=== PATIENT | female | born 1925 | race Caucasian/White ===

== ENCOUNTER 2016-12-20 22:23 | Observation (INO) | payer OTHER ==
--- NOTE | ~2016-12-20 | DS ---
Discharge Summary [facility] [address] [place]. [address] NAME: DEMETRIA JIMENEZ : [birth year] STATUS : DIS Ac PAT#: [id number] AGE: 89 ADM/REG DATE : 12/20/16 MR#: [id number] REPORT SERV DATE: 12/24/16 DICTATED BY: JR. CHOI WILLIAM JOHN DATE: 12/23/16 REPORT STATUS : Draft TRANSCRIBED BY: SHAHEED DATE: 12/23/16 ADMISSION DATE: 12/20/2016 DISCHARGE DATE: 12/23/2016 DISCHARGE DIAGNOSES: Include: 1. Syncope. 2. Acute kidney injury. 3. New right bundle branch block. 4. Uncontrolled hypertension. 5. Mental status change, which has resolved. OPERATIONS, PROCEDURES, AND TREATMENTS: Include: 1. Carotid flow study done 12/21/2016, which showed no significant carotid stenosis. Vertebral arteries were antegrade. 2. Echocardiogram done 12/21/2016, which showed normal left ventricular size and function with ejection fraction of 55-60%. Normal right ventricular size and function, possible left to right flow, atrial septal defect or stretch patent foramen ovale. 3. MRI of the brain done 12/21/2016, which showed moderate generalized atrophy without evidence of infarction. There was tortuosity and redundancy of the vertebral basilar artery. 4. Myocardial perfusion scan which showed no ischemia. DISCHARGE MEDICATIONS: Include: 1. Norvasc 10 mg daily. 2. Aspirin 81 daily. 3. Lipitor 40 daily. 4. Stool softener daily. 5. Tylenol as needed. HOSPITAL COURSE: The patient was an 89-year-old female who was walking out of beauty shop and felt dizzy, fell on her face. She was somewhat confused when she awakened and had a quite elevated blood pressure. The patient went to [facility]. She was given clonidine, nitroglycerin paste, and was subsequently transferred to [facility]. The patient was admitted to the Clinical Decision Unit. She was maintained on telemetry. She had an echocardiogram as above. She was also found to have a right bundle branch block, possibly new. Given the abnormal findings, the echocardiogram the bundle branch block and cardiogenic like symptoms, Cardiology was consulted. Dr. Can saw the patient and agreed the patient was a good candidate for an event monitor. She will be fitted with an event monitor tomorrow 12/24/2016 and will follow up with Cardiology in that regard. Regarding the patient's acute kidney injury, this resolved with IV fluids. Regarding the patient's hypertension, she was started on Norvasc with fair control. Regarding the mental status changes, resolved. This discharge took approximately 50 minutes for patient encounter, coordination care, and documentation. Discharge Summary [address] [address] NAME: DEMETRIA JIMENEZ : [birth year] STATUS : DIS Ac PAT#: [id number] AGE: 89 ADM/REG DATE : 12/20/16 MR#: [id number] REPORT SERV DATE: 12/24/16 DICTATED BY: JR. CHOI WILLIAM JOHN DATE: 12/23/16 REPORT STATUS : Draft TRANSCRIBED BY: SHAHEED DATE: 12/23/16 DISCHARGE DIET: Regular. ACTIVITY: As tolerated. WJF/SHAHEED Tre Choi Jr, MD / [id number] CC: MD Anca Chicas M.D.
--- NOTE | ~2016-12-20 | CN ---
Consultation Report [facility] [address] [place]. [address] NAME: DEMETRIA JIMENEZ : [birth year] STATUS : DIS Ac PAT#: [id number] AGE: 89 ADM/REG DATE : 12/20/16 MR#: [id number] REPORT SERV DATE: 12/23/16 DICTATED BY: RICHARD CAN DATE: 12/23/16 REPORT STATUS : Draft TRANSCRIBED BY: MODL DATE: 12/23/16 CARDIOLOGY CONSULTATION DATE OF CONSULTATION: 12/23/2016 REASON FOR CONSULTATION: Syncope and abnormal EKG. HISTORY OF PRESENT ILLNESS: Ms Jimenez is an 89-year-old female, we have been asked to see by the Hospitalist Service for evaluation and management of syncope with abnormal EKG. She has no significant cardiovascular history, but does have prior admissions to [facility] documented an abnormal EKG with a right bundle-branch block and first-degree AV block. She also has an echocardiogram from 09/2016 documenting normal LV systolic function with an interatrial defect, likely an ASD. She was in her usual state of health until three days ago when she was leaving the [employer] and became briefly dizzy before having a fall and striking her right sabianism. She was taken to her local ER where she was noted to have periorbital ecchymoses, but no significant intracranial trauma on the imaging. Her initial workup was unremarkable other than mild creatinine elevation and she was transferred here for further evaluation. Her workup here has been notable for an EKG demonstrating a right bundle-branch block, and a limited echo demonstrating no significant change from prior. She also had a stress test documenting no ischemia and a carotid duplex that showed no obstructive disease. At the time my evaluation, she feels well and states that she has not had any dizziness or lightheadedness since admission. Her recollection of her event is mostly clear, but she does not recall the actual active falling. She does recall feeling slightly dizzy. She comments that she normally ambulates with the assistance of a cane and/or walker and did not have these devices with her. She has had a previous episode of syncope versus fall, but without as much trauma. She denies any preceding chest pain or any palpitations. PAST MEDICAL HISTORY: 1. Hypertension. 2. Right bundle-branch block. MEDICATIONS: The patient states that she only takes a primary prevention aspirin. ALLERGIES: TO PENICILLIN, UNKNOWN REACTION. FAMILY HISTORY: Noncontributory. SOCIAL HISTORY: The patient is a resident at a shelter facility named [facility]. She is independent in all of her activities of daily living. She is a since the early s and has two children who live nearby. Her son is at bedside. She formally worked in [address] 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 No alcohol, tobacco, or illicits. REVIEW OF SYSTEMS: Per HPI. Otherwise, negative. PHYSICAL EXAMINATION: VITAL SIGNS: Heart rate approximately 60, blood pressure 170/70, respiratory rate 16. GENERAL: Well developed, female, in no apparent distress. HEENT: Remarkable for ecchymosis along the right orbit. No facial asymmetry. CARDIOVASCULAR: Regular S1, S2. No murmurs were present. Split S2 is noted. PULMONARY: Clear to auscultation bilaterally. No wheezes, no rales. ABDOMEN: Soft, nondistended, nontender. EXTREMITIES: Warm without edema. LABORATORY DATA: Labs reviewed and notable for creatinine of 1.06, GFR approximately 55. Sodium and potassium within normal limits. Hemoglobin 11.4, troponin less than 0.04 x2. TSH 2.1. EKG reviewed demonstrates sinus rhythm with first-degree AV block and right bundle-branch block. Compared to prior EKGs, the right bundle branch block is not new. Telemetry demonstrates sinus rhythm with periods of sinus bradycardia and PACs, but no prolonged pauses. IMPRESSIONS/RECOMMENDATIONS: 1. Syncope versus mechanical fall. 2. Abnormal electrocardiogram, right bundle-branch block, first-degree atrioventricular block. 3. Abnormal echocardiogram suggestive of atrioseptal defect, but without evidence of right ventricular enlargement. 4. Although there are features that suggest that the patient did have a true syncopal episode, she normally ambulates with mechanical assist devices and did not have these. It is very possible, but this was simply a mechanical fall despite her limited recollection of the events. Thus far, on telemetry, there has not been any obvious source of syncope from electrocardiographic standpoint. Her right bundle-branch block is old and there have been no prolonged pauses in this 89 year old in whom advanced conduction system disease and/or sick sinus syndrome is a possibility, I would favor ambulatory monitoring and specifically an event monitor as the next step. We will attempt to arrange this in the next 24 hours, but at this time based on the lack of any significant dysrhythmia, discharge would be reasonable. Regarding atrial septal defect, there is no indication for additional therapy at this time. No significant right-sided remodeling is noted. I will see her in the outpatient setting. Thank you for the consultation. Consultation Report [address] [place]. [address] NAME: DEMETRIA JIMENEZ : [birth year] STATUS : DIS Ac PAT#: [id number] AGE: 89 ADM/REG DATE : 12/20/16 MR#: [id number] REPORT SERV DATE: 12/23/16 DICTATED BY: RICHARD CAN DATE: 12/23/16 REPORT STATUS : Draft TRANSCRIBED BY: SHAHEED DATE: 12/23/16 LARA/SHAHEED Richard Can MD / [id number] CC: MD Anca Chicas M.D.
--- NOTE | ~2016-12-20 | HP ---
History And Physical [facility] [address] [facility] [place]. [address] NAME: DEMETRIA JIMENEZ : [birth year] STATUS : ADM Ac PAT#: [id number] AGE: 89 ADM/REG DATE : 12/20/16 MR#: [id number] REPORT SERV DATE: 12/21/16 DICTATED BY: DEVON SEE DATE: 12/21/16 REPORT STATUS : Draft TRANSCRIBED BY: MODL DATE: 12/21/16 DATE OF ADMISSION: 12/20/2016 CHIEF COMPLAINT: This is the patient we accepted in transfer from [facility] after I spoke to physician's market research assistant there, [place] Yakelin Carpio. HISTORY OF PRESENT ILLNESS: Briefly, the patient was walking out of a beauty shop after doing her hair when she suddenly felt dizzy and fell to the floor. She says she was on the sidewalk, almost reached the car of her sister, but could not make it. In going down, she also hit her head over the right eyebrow. When she woke up, she was a little confused and EMS was called and the patient was brought to the Emergency Room at [facility]. According to Ms. Carpio that I spoke to, when she arrived there, her blood pressure was 220/90. She was immediately given some clonidine and nitro paste and subsequently came down to 176/78. Initial workup there revealed a creatinine of 1.22 and elevated BNP of 845. Chest x-ray was unremarkable. Troponin was negative. CBC was unremarkable, so was her CMP. Her CK was normal. The patient has no past medical history and she takes no medicine other than aspirin and Tylenol on an as needed basis. She wanted to be transferred to [facility] for further evaluation. At the time of my evaluation when she got here, she was very pleasant, was in no acute distress. She denied any chest pain, palpitations, or orthopnea. She had no cough, hemoptysis, night sweats, or weight loss. She denied any fevers, chills, nausea, vomiting, diarrhea. She denied any hematemesis, hematochezia, or hematuria. No other history of recent travel or exposures. PAST MEDICAL HISTORY: Significant for history of possibly hypertension that she was on lisinopril and she discontinued this many years ago by herself. SOCIAL HISTORY: She has never smoked. Does not drink or use recreational drugs. She used to work in the insurance industry from an office. FAMILY HISTORY: Noncontributory. MEDICATIONS: At home, none. REVIEW OF SYSTEMS: As in history of present illness. All other systems were reviewed in detail and quite unremarkable. PHYSICAL EXAMINATION: GENERAL: This is a pleasant 89-year-old, not in any acute distress. HEENT: Her head has a small contusion over her right eyebrow, otherwise unremarkable. She was alert, awake, oriented to time, place, and person. Pupils are equal, reacting to light and accommodating. External ocular muscles were intact. Membranes were moist and pink. Sclerae are nonicteric. NECK: Supple with no jugular venous distention, lymphadenopathy, or thyromegaly. History And Physical [address] [address] NAME: DEMETRIA JIMENEZ : [birth year] STATUS : ADM Ac PAT#: [id number] AGE: 89 ADM/REG DATE : 12/20/16 MR#: [id number] REPORT SERV DATE: 12/21/16 DICTATED BY: DEVON SEE DATE: 12/21/16 REPORT STATUS : Draft TRANSCRIBED BY: SHAHEED DATE: 12/21/16 LUNGS: Auscultation of her lungs revealed good air entry bilaterally with no wheezes, rubs, or crackles. HEART: Heart sounds were regular with no murmurs, rubs, or gallops. ABDOMEN: Soft, nontender. Bowel sounds are present. EXTREMITIES: Showed no cyanosis, clubbing, or edema. NEUROLOGIC: Grossly intact. No focal sensory or motor deficits. Higher functions appeared intact. She was able to move all four extremities. VITAL SIGNS: Her vital signs when she arrived here showed she was afebrile with a temperature of 98.6, pulse 56, respirations 22 a minute, blood pressure was 140/63, oxygen saturations were 99% on 2 L via nasal cannula. LABORATORY DATA: Laboratory data and other material which accompanied the patient from [facility] was reviewed by me today. Of mention, her EKG done there showed a new right bundle-branch block. Otherwise, without any acute ST-T changes. IMPRESSION: 1. Syncope and collapse. 2. Acute kidney injury. 3. New right bundle-branch block. 4. Uncontrolled hypertension. 5. Altered mental status, resolved. PLAN: We will admit Ms. Jimenez to the Hospitalist Service with telemetry for a 24-hour observation period. We will control blood pressures with clonidine and continue her nitro paste that she is on. We will also give her a dose of Bumex intravenously as well. We will get an echocardiogram in the morning. We have no prior data from any physician that had seen as she had no past medical history. She does have some slightly elevated creatinine here. We will monitor her labs in the morning after above interventions. We will also place her on unfractionated heparin for DVT prophylaxis while she is here. I have discussed the above plans with the patient. Her questions were answered. She is agreeable to the above recommendations. Hospitalist Service will be following her during her stay here. /SHAHEED Devon See M.D. / [id number] CC: MD Anca Chicas M.D.
[~2016-12-20 22:23] MED LIST: MOBIC15 MG PO; PRIN2.5 PO; T PO
[2016-12-20] MEDS ORDERED: ASAB PO (23:57)
[2016-12-21 07:46] LABS: BASOPHILS 0.1 %; BASOPHILS ABSOLUTE 0.01 10/3/uL (0.0-0.16); EOSINOPHILS 2.8 %; EOSINOPHILS ABSOLUTE 0.19 10/3/uL (0.0-0.53); HEMOGLOBIN 11.9 g/dL (12.0-16.0); LYMPHOCYTES 15.7 %; LYMPHOCYTES ABSOLUTE 1.08 10/3/uL (0.67-4.30); MEAN CORPUS HGB CONC 32.5 g/dL (32.0-36.0); MEAN CORPUSCULAR HEMOGLOB 26.2 pg (26.0-34.0); MEAN CORPUSCULAR VOLUME 80.4 fL (80-100); MEAN PLATELET VOLUME 9.8 fL (9.2-13.0); MONOCYTES 7.5 %; MONOCYTES ABSOLUTE 0.52 10/3/uL (0.21-1.20); NEUTROPHILS 73.9 %; NEUTROPHILS ABSOLUTE 5.09 10/3/uL (2.02-8.40); PLATELET COUNT 249 10/3/uL (150-400); RBC DISTRIBUTION WIDTH 14.8 % (12.0-16.0); RED CELL COUNT 4.55 10/6/uL (4.0-5.6)
[2016-12-21 07:47] LABS: HEMATOCRIT 36.6 % (36.0-48.0); MANUAL DIFF NO %; WHITE BLOOD CELLS 6.9 10/3/uL (4.5-10.5)
[2016-12-21 08:10] LABS: BUN (BLOOD UREA NITROGEN) 24 MG/DL (6-23); CALCIUM, SERUM 8.6 MG/DL (8.5-10.4); CHLORIDE, SERUM 106 MMOL/L (96-112); CO2 (CARBON DIOXIDE) 26 MMOL/L (24-34); CREATININE 1.06 MG/DL (0.55-1.02); GFR AFRICAN AMERICAN 54 ML/MIN (>=60); GFR NON AFRICAN AMERICAN 47 ML/MIN (>=60); GLUCOSE, SERUM 104 MG/DL (60-99); PHOSPHORUS, SERUM 3.3 MG/DL (2.5-4.5); POTASSIUM, SERUM 4.1 MMOL/L (3.5-5.3); SODIUM, SERUM 141 MMOL/L (135-148)
[2016-12-21] MEDS ORDERED: ACET500CAP PO (16:10)
[2016-12-21] MEDS ORDERED: STOOL SOFTENER PO (16:10)
[2016-12-21] MEDS ORDERED: ICY HOT OINTMENT TOP (16:11)
[2016-12-22 05:34] LABS: BASOPHILS 0.4 %; BASOPHILS ABSOLUTE 0.02 10/3/uL (0.0-0.16); EOSINOPHILS 5.6 %; EOSINOPHILS ABSOLUTE 0.31 10/3/uL (0.0-0.53); HEMATOCRIT 35.5 % (36.0-48.0); HEMOGLOBIN 11.4 g/dL (12.0-16.0); IMMATURE GRANULOCYTES 0.2 %; IMMATURE GRANULOCYTES ABSOLUTE 0.01 10/3/uL (0.0-0.11); LYMPHOCYTES 22.7 %; LYMPHOCYTES ABSOLUTE 1.26 10/3/uL (0.67-4.30); MEAN CORPUS HGB CONC 32.1 g/dL (32.0-36.0); MEAN CORPUSCULAR HEMOGLOB 25.9 pg (26.0-34.0); MEAN CORPUSCULAR VOLUME 80.5 fL (80-100); MEAN PLATELET VOLUME 9.9 fL (9.2-13.0); MONOCYTES 9.4 %; MONOCYTES ABSOLUTE 0.52 10/3/uL (0.21-1.20); NEUTROPHILS 61.7 %; NEUTROPHILS ABSOLUTE 3.43 10/3/uL (2.02-8.40); PLATELET COUNT 259 10/3/uL (150-400); RBC DISTRIBUTION WIDTH 14.7 % (12.0-16.0); RED CELL COUNT 4.41 10/6/uL (4.0-5.6); WHITE BLOOD CELLS 5.6 10/3/uL (4.5-10.5)
[2016-12-22 05:36] LABS: MANUAL DIFF NO %
[2016-12-22 05:39] LABS: BUN (BLOOD UREA NITROGEN) 27 MG/DL (6-23); CALCIUM, SERUM 8.7 MG/DL (8.5-10.4); CHLORIDE, SERUM 107 MMOL/L (96-112); CO2 (CARBON DIOXIDE) 28 MMOL/L (24-34); CREATININE 1.06 MG/DL (0.55-1.02); GFR AFRICAN AMERICAN 54 ML/MIN (>=60); GFR NON AFRICAN AMERICAN 47 ML/MIN (>=60); GLUCOSE, SERUM 101 MG/DL (60-99); HDL CHOLESTEROL 67 MG/DL (> 49); POTASSIUM, SERUM 4.1 MMOL/L (3.5-5.3); SODIUM, SERUM 143 MMOL/L (135-148)
[2016-12-22 05:40] LABS: CHOL/HDL RATIO(NOT ORDER) 2.3 (0-5); CHOLESTEROL 151 MG/DL (< 200); LDL CHOLESTEROL 70 MG/DL (< 130); NON-HDL CHOLESTEROL 84 MG/DL (< 160); TRIGLYCERIDE 74 MG/DL (< 150)
[2016-12-22 17:10] LABS: BUN (BLOOD UREA NITROGEN) 28 MG/DL (6-23); CALCIUM, SERUM 9.1 MG/DL (8.5-10.4); CHLORIDE, SERUM 105 MMOL/L (96-112); CO2 (CARBON DIOXIDE) 29 MMOL/L (24-34); CREATININE 1.17 MG/DL (0.55-1.02); GFR AFRICAN AMERICAN 48 ML/MIN (>=60); GFR NON AFRICAN AMERICAN 41 ML/MIN (>=60); POTASSIUM, SERUM 4.1 MMOL/L (3.5-5.3); SODIUM, SERUM 141 MMOL/L (135-148)
[2016-12-22 17:12] LABS: GLUCOSE, SERUM 135 MG/DL (60-99)
[2016-12-23 07:48] LABS: BUN (BLOOD UREA NITROGEN) 27 MG/DL (6-23); CALCIUM, SERUM 8.7 MG/DL (8.5-10.4); CHLORIDE, SERUM 110 MMOL/L (96-112); CREATININE 1.02 MG/DL (0.55-1.02); GFR AFRICAN AMERICAN 56 ML/MIN (>=60); GFR NON AFRICAN AMERICAN 49 ML/MIN (>=60); GLUCOSE, SERUM 109 MG/DL (60-99); POTASSIUM, SERUM 4.2 MMOL/L (3.5-5.3); SODIUM, SERUM 144 MMOL/L (135-148)
[2016-12-23 07:49] LABS: CO2 (CARBON DIOXIDE) 24 MMOL/L (24-34)
[2016-12-23] MEDS ORDERED: NORV10 PO (15:46)
[2016-12-23] MEDS ORDERED: LIPITOR40 (15:47)
== END 2016-12-23 16:14 | disposition home or self-care (01) ==
LOC: CDU1 22:23 → CDU2 12-21 23:43
PROVIDERS: Internal Medicine; Internal Medicine Pulmonary Disease
DX: R55 Syncope and collapse (principal); N17.9 Acute kidney failure, unspecified; I44.0 Atrioventricular block, first degree; I10 Essential (primary) hypertension; I45.10 Unspecified right bundle-branch block; M19.90 Unspecified osteoarthritis, unspecified site; Z79.82 Long term (current) use of aspirin; Z79.899 Other long term (current) drug therapy; Z88.0 Allergy status to penicillin; Z90.710 Acquired absence of both cervix and uterus; Z98.890 Other specified postprocedural states
CPT/HCPCS: 70551; 78452; 80048; 80061; 83735; 84100; 84443; 84484; 85025; 93017; 93308; 93880; 96372; 96374; 96375; 96376; 97161-GP; 97165-GO; A9270-GY; A9502; G0378; J0153; J0360